=== PATIENT | female | born 1980 | race Caucasian/White ===

== ENCOUNTER 2019-07-31 20:21 | Emergency (ER) | payer BC ==
[2019-07-31] MEDS ORDERED: METHYLPREDNISOLONE SOD SUCC 125MG/2ML VIAL ONE (20:29)
[2019-07-31] MEDS ORDERED: ALBUTEROL INHALER 90MCG/INH IH ONE (20:29)
== END 2019-07-31 21:04 | disposition home or self-care (01) ==
LOC: EDH 20:21
DX: R05 Cough (principal); J45.991 Cough variant asthma; J45.909 Unspecified asthma, uncomplicated; Z90.49 Acquired absence of other specified parts of digestive tract; Z90.710 Acquired absence of both cervix and uterus; Z72.0 Tobacco use; Z88.6 Allergy status to analgesic agent
CPT/HCPCS: 96372; 99284; J2930

== ENCOUNTER 2024-02-27 16:40 | Emergency (ER) | payer BC, OTHER ==
[~2024-02-27] VITALS: Ht 152.4 cm; Wt 59.0 kg
[2024-02-27 17:24] LABS: BASOPHILS # (AUTO) 0.06 K/uL (0.00-0.20); BASOPHILS % (AUTO) 0.6 % (0.0-5.0); EOSINOPHILS # (AUTO) 0.04 K/uL (0.00-0.70); EOSINOPHILS % (AUTO) 0.4 % (0.0-8.0); IMMATURE GRANULOCYTE ABSOLUTE 0.02 K/uL (0-1); LYMPHOCYTES # (AUTO) 2.9 K/uL (1.0-4.8); LYMPHOCYTES % (AUTO) 31.1 % (21.0-51.0); MEAN CORPUSCULAR HEMOGLOBIN 28.8 pg (27.0-33.0); MEAN CORPUSCULAR HGB CONC 34.1 g/dL (32.0-36.0); MEAN CORPUSCULAR VOLUME 84.2 fL (79-99); MONOCYTES # (AUTO) 0.6 K/uL (0.1-1.0); MONOCYTES % (AUTO) 5.9 % (3.0-13.0); NEUTROPHILS # (AUTO) 5.7 K/uL (1.8-7.7); NEUTROPHILS % (AUTO) 61.8 % (40.0-77.0); PLATELET COUNT (AUTO) 198 K/uL (130-400); RED BLOOD CELL COUNT(AUTO) 5.46 MIL/uL (4.00-5.50); RED CELL DISTRIBUTION WIDTH 14.8 % (11.0-15.5); WHITE BLOOD COUNT (AUTO) 9.3 K/uL (4.8-10.8)
[2024-02-27 17:36] LABS: ALBUMIN 4.3 g/dL (3.5-5.0); BILIRUBIN,DIRECT 0.1 mg/dL (0.0-0.3); BILIRUBIN,TOTAL 0.5 mg/dL (0.2-1.0); CREATININE 1.2 mg/dL (0.5-1.0); TOTAL PROTEIN, SERUM 7.7 g/dL (6.0-8.3)
[2024-02-27 17:39] LABS: POTASSIUM 2.9 mmol/L (3.5-5.1)
[2024-02-27] MEDS: 0.9%NACL 1000ML 1,000 ML IV ONE (18:24)
[2024-02-27] MEDS: morPHINE 4 MG SYG IVP ONE (18:25)
[2024-02-27] MEDS: PoTASSium chloRIDE 10MEQ/100ML 100 ML IV ONE (18:26)
[2024-02-27] MEDS: ondanSETRON 4MG INJ IVP ONE (18:26)
[2024-02-27] MEDS ORDERED: PoTASSium chloRIDE 10MEQ/100ML 100 ML IV ONE (18:30)
[2024-02-27] MEDS ORDERED: IOHEXOL-350 75 ML VIAL IV ONE (18:32)
[2024-02-27 20:21] LABS: APPEARANCE,URINE CLEAR (CLEAR); BILIRUBIN,URINE NEGATIVE (NEGATIVE); COLOR,URINE LIGHT-YELLOW (YELLOW); GLUCOSE, URINE (UA) NEGATIVE (NEGATIVE); KETONES,URINE NEGATIVE (NEGATIVE); LEUKOCYTE ESTERASE ,URINE NEGATIVE Leu/uL (NEGATIVE); NITRATE,URINE NEGATIVE (NEGATIVE); OCCULT BLOOD,URINE NEGATIVE (NEGATIVE); PROTEIN,URINE 20 mg/dL (NEGATIVE); UROBILINOGEN,URINE 0.2 mg/dL (0.2-1.0)
[2024-02-27 20:22] LABS: ADD UA MICROSCOPIC YES
[2024-02-27 20:23] LABS: BACTERIA,URINE RARE /HPF (None Seen); RBC,URINE 0-1 /HPF (0-1); SQUAMOUS EPITHELIAL CELL,UR FEW /HPF (0-2); WBC,URINE 0-1 /HPF (0-1)
[2024-02-27 20:35] LABS: AMPHET/METH SCREEN,URINE NEGATIVE (NEGATIVE); BARBITURATE SCREEN, URINE NEGATIVE (NEGATIVE); BENZODIAZEPINES SCREEN,URINE NEGATIVE (NEGATIVE); CANNABINOID SCREEN,URINE POSITIVE (NEGATIVE); COCAINE SCREEN,URINE NEGATIVE (NEGATIVE); OPIATE SCREEN,URINE POSITIVE (NEGATIVE); PHENCYCLIDINE SCREEN,URINE NEGATIVE (NEGATIVE)
[2024-02-27] MEDS ORDERED: ONDA-243 PO (20:56)
[2024-02-27] MEDS: PoTASSium BIcarbonate/CIT AC 25 MEQ TABLET.EFF PO ONE (21:02)
[2024-02-27 22:00] VITALS: BP 136/79; PULSE 88; RESP 16; TEMP 98.2; O2SAT 98
== END 2024-02-27 22:07 | disposition home or self-care (01) ==
LOC: EDH 16:40
DX: K52.9 Noninfective gastroenteritis and colitis, unspecified (principal); F12.10 Cannabis abuse, uncomplicated; E87.6 Hypokalemia; E87.1 Hypo-osmolality and hyponatremia; N17.9 Acute kidney failure, unspecified; E86.0 Dehydration; R74.8 Abnormal levels of other serum enzymes; Z87.11 Personal history of peptic ulcer disease; Z88.2 Allergy status to sulfonamides; Z90.710 Acquired absence of both cervix and uterus
CPT/HCPCS: 99284; 74177; 96365; 96366; 96375; 80076; 83735; 80048; 80305; 84703; 83690; 85025; 36415; 81001; 84132; J7030; J2405; J2270; Q9967; J3480

== ENCOUNTER 2024-03-13 15:08 | Emergency (ER) | payer OTHER ==
[~2024-03-13] VITALS: Ht 152.4 cm; Wt 61.2 kg
[~2024-03-13 15:08] MED LIST: ONDA-243 PO
[2024-03-13 15:16] VITALS: BP 156/93; PULSE 98; RESP 20; TEMP 97.1
--- NOTE | 2024-03-13 15:26 | ERN ---
ED Note History of Present Illness Stated Complaint: MULTIPLE COMPLAINTS Chief Complaint: Multiple Complaints Time Seen by MD: 15:10 Dictation: PATIENT IS A 43-YEAR-OLD FEMALE COMING IN TODAY WITH ACUTE ONSET OF RIGHT UPPER QUADRANT AND EPIGASTRIC PAIN WITH NAUSEA ONSET2 HOURS PRIOR TO ARRIVAL. SHE STATES SHE HAD EATEN WAS TAKEN A BATH WITH THE ONSET OF THE PAIN. NO FEVER NO CHILLS NO CHEST PAIN NO BACK PAIN. SHE STATES SHE WAS SEEN AT [facility] SEVERAL DAYS AGO FOR THE SAME COMPLAINT HAD A COMPLETE WORKUP TO INCLUDE CT SCAN WAS TOLD TO ELECTROLYTE IMBALANCE HOWEVER DID NOT FOLLOW UP WITH A DOCTORS BECAUSE SHE DOES NOT HAVE A PRIMARY CARE DOCTOR. Allergies: Coded Allergies: Sulfa (Sulfonamide Antibiotics) (Unverified Allergy, Unknown, 02/27/24) Home Meds Active Scripts Ondansetron (Ondansetron Odt) 4 Mg Tab.rapdis, 1 TAB PO Q6HPRN PRN for nausea/vo miting for 4 Days, #16 TAB 0 Refills Prov:CYNDI CHOU MD 02/27/24 Past Medical History Past Medical History: Other Additional Past Medical Hx: MS, GASTRIC ULCERS Surgical History: Hysterectomy Surgical History Other: ORAL SX PSYCH History: no pertinent psych hx History: Not Applicable RN Note Reviewed/Agreed w/PFSH: Yes Review of System Dictation CONSTITUTIONAL: NEGATIVE EXCEPT FOR HPI HEAD/FACE: NEGATIVE EXCEPT FOR HPI EENT: NEGATIVE EXCEPT FOR HPI RESPIRATORY: NEGATIVE EXCEPT FOR HPI GASTROINTESTINAL/ABDOMINAL: NEGATIVE EXCEPT FOR HPI RIGHT UPPER QUADRANT EPIGASTRIC PAIN WITH NAUSEA GENITOURINARY: NEGATIVE EXCEPT FOR HPI MUSCULOSKELETAL: NEGATIVE EXCEPT FOR HPI INTEGUMENTARY: NEGATIVE EXCEPT FOR HPI NEUROLOGICAL/PSYCH: NEGATIVE EXCEPT FOR HPI HEMATOLOGIC/LYMPHATIC: NEGATIVE EXCEPT FOR HPI ALL SYSTEMS NEGATIVE, EXCEPT NOTED ABOVE. 13 POINT REVIEW OF SYSTEMS ASSESSED AND ALL NEGATIVE EXCEPT FOR ABOVE. Initial Vital Sign VS Vital Signs Date Time Temp Pulse Resp B/P (MAP) Pulse Ox O2 Delivery O2 Flow Rate FiO2 03/13/24 15:16 97.2 98 20 156/93 99 03/13/24 16:02 Room Air* 0 21 Physical Exam Dictation VITAL SIGNS REVIEWED GENERAL APPEARANCE: ALERT, ORIENTED X 3, MODERATE ACUTE DISTRESS, WELL DEVELOPED, NOURISHED. HEAD AND FACE: NON-TRAUMATIC. EYES: PERRL, PINK CONJUNCTIVAS, EYELID NO TRAUMA, ANTERIOR CHAMBER WITH ARCUS SENILIS. EARS: PINNAS INTACT AND NO SIGNS OF TRAUMA OR ERYTHEMA EAR CANALS CLEAR AND NO DISCHARGE TM NO ERYTHEMA NOSE: NO DISCHARGE, NO BLEEDING. OROPHARYNX: MOUTH NORMAL, TONGUE PINK, PHARYNX CLEAR,NO ERYTHEMA, TONSILS NO EXUDATES, NO ABSCESSES NOTED, MUCOUS MEMBRANE MOIST NECK: SUPPLE, NON-TENDER, NO THYROMEGALY, NO MASSES, NO JVD, NO BRUITS BREAST:DEFERRED CHEST:NO TENDERNESS, NO CREPITUS, NO PARADOXICAL MOVEMENT, NO RETRACTIONS LUNGS:CLEAR, WELL-VENTILATED, SYMMETRIC, NO RALES, NO WHEEZING, NO RHONCHI, NO STRIDOR, GOOD BREATH SOUNDS BILATERALLY HEART: REGULAR RATE, REGULAR RHYTHM, NO MURMUR, NO GALLOPS VASCULAR: NO PERIPHERAL EDEMA, ABDOMEN: SOFT, POSITIVE BOWEL SOUNDS, NONDISTENDED, NO GUARDING, RIGHT UPPER QUADRANT PAIN TENDERNESS, NO REBOUND, NO MASSES NO HEPATOMEGALY, NO SPLENOMEGALY, POSITIVE LOZA'S SIGN, NO HERNIAS. RECTAL: DEFERRED GENITAL: DEFERRED NEUROLOGICAL: NORMAL SPEECH, MOTOR FUNCTION INTACT, SENSORY FUNCTION INTACT MUSCULOSKELETAL: NECK NONTENDER, FULL RANGE OF MOTION, BACK NONTENDER, FULL RANGE OF MOTION, EXTREMITIES: NONTENDER, FULL RANGE OF MOTION SKIN: COLOR PINK, DRY, NO TURGOR, NO RASH, NO LACERATIONS, NO ABRASIONS, NO CONTUSIONS. LYMPHATIC: DEFERRED Results (Laboratory/Radiology) Laboratory/Radiology Laboratory Tests Test 03/13/24 15:45 White Blood Count 6.7 K/uL (4.8-10.8) Red Blood Count 5.31 MIL/uL (4.00-5.50) Hemoglobin 15.3 g/dL (12.0-16.0) Hematocrit 45.9 % (36-48) Mean Corpuscular Volume 86.4 fL (79-99) Mean Corpuscular Hemoglobin 28.8 pg (27.0-33.0) Mean Corpuscular Hemoglobin Concent 33.3 g/dL (32.0-36.0) Red Cell Distribution Width 14.9 % (11.0-15.5) Platelet Count 214 K/uL (130-400) Mean Platelet Volume 9.5 fL (7.5-10.5) Immature Granulocyte % (Auto) 0.3 % (0-1) Neutrophils (%) (Auto) 57.0 % (40.0-77.0) Lymphocytes (%) (Auto) 35.4 % (21.0-51.0) Monocytes (%) (Auto) 4.8 % (3.0-13.0) Eosinophils (%) (Auto) 1.8 % (0.0-8.0) Basophils (%) (Auto) 0.7 % (0.0-5.0) Neutrophils # (Auto) 3.8 K/uL (1.8-7.7) Lymphocytes # (Auto) 2.4 K/uL (1.0-4.8) Monocytes # (Auto) 0.3 K/uL (0.1-1.0) Eosinophils # (Auto) 0.12 K/uL (0.00-0.70) Basophils # (Auto) 0.05 K/uL (0.00-0.20) Absolute Immature Granulocyte (auto 0.02 K/uL (0-1) Nucleated Red Blood Cells 0.0 % (0.0-0.19) Sodium Level 140 mmol/L (136-145) Potassium Level 3.5 mmol/L (3.5-5.1) Chloride Level 101 mmol/L (101-111) Carbon Dioxide Level 30 mmol/L (21-32) Blood Urea Nitrogen 7 mg/dL (7-18) Creatinine 1.1 mg/dL (0.5-1.0) H Glomerular Filtration Rate Calc 64 mL/min (>90) Random Glucose 129 mg/dL (70-105) H Total Calcium 9.5 mg/dL (8.5-10.1) Lipase 36 U/L (16-77) 16 15, ULTRASOUND WAS NOT PERFORMED BECAUSE 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 PATIENT WAS BROUGHT BACK TO THE EMERGENCY ROOM CURRENTLY SITTING IN THE WAITING ROOM IN NO ACUTE DISTRESS IN HIS TEXTING. SHE WILL BE DISCHARGED HOME TO FOLLOW UP WITH AN POWER SCREWDRIVER OPERATOR DOCTOR IN THE NEXT 1-2 DAYS. AND WE WILL PROVIDE BENTYL FOR PAIN. Labs Reviewed?: Yes ED Course ED Course Orders Procedure Category Date Status Time Cbc With Differential LAB 03/13/24 Complete 15:18 Urinalysis Profile LAB 03/13/24 Logged 15:18 0.9%Nacl 1000ml (Ns PHA 03/13/24 Complete 1000ml) 15:30 Ketorolac PHA 03/13/24 Complete Tromethamine 30mg/Ml 15:30 Ondansetron 4mg Inj PHA 03/13/24 Complete (Zofran 4mg Inj) 15:30 Famotidine 20mg Vial PHA 03/13/24 Complete (Pepcid 20mg Vial) 15:30 Lipase LAB 03/13/24 Complete 15:18 Basic Metabolic Panel LAB 03/13/24 Complete 15:18 Us Abdominal Ruq\Ltd US 03/13/24 Taken 15:18 Current Medications Medications (Trade) Dose Ordered Sig/Adyin Route PRN Reason Start Time Stop Time Status Last Admin Dose Admin Famotidine (Pepcid 20mg Vial) 20 mg ONCE ONCE IV 03/13/24 15:30 03/13/24 15:31 DC Ketorolac Tromethamine (toRADol) 30 mg ONCE ONCE IVP 03/13/24 15:30 03/13/24 15:31 DC Ondansetron HCl (zoFRAN 4MG INJ) 4 mg ONCE ONCE IVP 03/13/24 15:30 03/13/24 15:31 DC Sodium Chloride 1,000 ml @ 0 mls/hr ONCE ONCE IV 03/13/24 15:30 03/13/24 15:31 DC Vital Signs Date Time Temp Pulse Resp B/P (MAP) Pulse Ox O2 Delivery O2 Flow Rate FiO2 03/13/24 16:02 97.2 98 20 156/93 99 Room Air* 0 21 03/13/24 15:16 97.2 98 20 156/93 99 Medical Decision Making MDM MDM: DIFFERENTIAL DIAGNOSIS: CHOLEDOCHOLITHIASIS/CHOLELITHIASIS/BILIARY COLIC/ELECTROLYTE IMBALANCE/DEHYDRATION RATIONALE: TESTS CONSIDERED AND ORDERED SECONDARY TO SHARED DECISION MAKING INCLUDE: LABS/ULTRASOUND, NOT PERFORMED PREVIOUS OUTSIDE RECORDS REVIEWED: OLD ER VISITS. REVIEWED RISK OF COMPLICATION AND/OR MORBIDITY OR MORTALITY OF PATIENT MANAGEMENT: NONE MEDICATIONS-PER MEDICATION RECONCILIATION SEE NURSE'S NOTES NEED FOR HOSPITALIZATION: PATIENT DOES NOT MEET CRITERIA FOR HOSPITALIZATION. DISCHARGED HOME NEED FOR EMERGENCY MAJOR/MINOR SURGERY: NO THERE ARE NO SOCIAL CONCERNS WITH THIS PATIENT. PRESCRIPTION DRUG MANAGEMENT [place], NAME OF PUBLIC ADDRESS SYSTEMS MECHANIC PRESCRIPTIONS WILL INCLUDE SYMPTOMATIC CARE PATIENT'S PRIOR EXTERNAL MEDICAL RECORDS FROM OTHER ER VISITS WERE REVIEWED BY ME INDICATED. PRIOR TESTING AND RESULTS FROM PREVIOUS VISITS WERE REVIEWED. PRIOR TESTS WERE TAKEN INTO ACCOUNT WITH MEDICAL DECISION MAKING AND RESOURCE UTILIZATION, INDEPENDENT HISTORIAN/HISTORIANS WERE USED TO OBTAIN COMPLETE MEDICAL HISTORY. I INDEPENDENTLY INTERPRETED THE TEST THAT WERE PERFORMED, RESULTS WERE REVIEWED BY ME AND CONSIDERED FINDINGS ON RADIOLOGY IF ORDERED. MEDICAL MANAGEMENT AND EXAMINATION INTERPRETATION DISCUSSIONS WERE HAD BY ME WITH OTHER QUALIFIED HEALTHCARE PROFESSIONALS INDICATED FOR THE PATIENT'S CARE. DX & DISP Disposition: Discharge Departure Impression: Primary Impression: Anxiety Additional Impressions: Agitation, Acute gastritis Condition: Stable Scripts Ondansetron (Ondansetron Odt) 4 Mg Tab.rapdis 4 MG PO Q6HPRN PRN for nausea, #16 TAB 0 Refills Prov: BHASKAR JALLOH NP 03/13/24 Dicyclomine HCl (Bentyl) 20 Mg Tab 20 MG PO Q6HPRN for ABDOMINAL PAIN/CRAMPING, #30 TAB Prov: BHASKAR JALLOH NP 03/13/24 Referrals: SELF,REFERRAL (PCP) KARINE HEATON MD Time of Disposition: 16:19 I have reviewed the case, and I agree with, Diagnosis and Plan BHASKAR JALLOH NP Mar 13, 2024 15:26
[2024-03-13] MEDS ORDERED: FAMOTIDINE 20MG VIAL IV ONE (15:30)
[2024-03-13] MEDS ORDERED: ketOROlac 30MG VIAL (30MG/ML) IVP ONE (15:30)
[2024-03-13] MEDS ORDERED: ondanSETRON 4MG INJ IVP ONE (15:30)
[2024-03-13] MEDS ORDERED: 0.9%NACL 1000ML 1,000 ML IV ONE (15:30)
[2024-03-13 15:56] LABS: BASOPHILS # (AUTO) 0.05 K/uL (0.00-0.20); BASOPHILS % (AUTO) 0.7 % (0.0-5.0); EOSINOPHILS # (AUTO) 0.12 K/uL (0.00-0.70); EOSINOPHILS % (AUTO) 1.8 % (0.0-8.0); HEMATOCRIT 45.9 % (36-48); IMMATURE GRANULOCYTE ABSOLUTE 0.02 K/uL (0-1); LYMPHOCYTES # (AUTO) 2.4 K/uL (1.0-4.8); LYMPHOCYTES % (AUTO) 35.4 % (21.0-51.0); MEAN CORPUSCULAR HEMOGLOBIN 28.8 pg (27.0-33.0); MEAN CORPUSCULAR HGB CONC 33.3 g/dL (32.0-36.0); MEAN CORPUSCULAR VOLUME 86.4 fL (79-99); MONOCYTES # (AUTO) 0.3 K/uL (0.1-1.0); MONOCYTES % (AUTO) 4.8 % (3.0-13.0); NEUTROPHILS # (AUTO) 3.8 K/uL (1.8-7.7); PLATELET COUNT (AUTO) 214 K/uL (130-400); RED BLOOD CELL COUNT(AUTO) 5.31 MIL/uL (4.00-5.50); RED CELL DISTRIBUTION WIDTH 14.9 % (11.0-15.5); WHITE BLOOD COUNT (AUTO) 6.7 K/uL (4.8-10.8)
[2024-03-13 16:02] VITALS: O2SAT 99
[2024-03-13 16:02] LABS: CREATININE 1.1 mg/dL (0.5-1.0); POTASSIUM 3.5 mmol/L (3.5-5.1)
[2024-03-13] MEDS ORDERED: DICY20TA2 PO (16:20)
[2024-03-13] MEDS ORDERED: ONDA-243 PO (16:22)
[2024-03-13] MEDS: DICYCLOMINE HCL 20 MG TAB PO ONE (17:02)
== END 2024-03-13 17:04 | disposition home or self-care (01) ==
LOC: EDH 15:08
DX: K29.00 Acute gastritis without bleeding (principal); F41.9 Anxiety disorder, unspecified; Z90.710 Acquired absence of both cervix and uterus; Z79.899 Other long term (current) drug therapy; Z88.2 Allergy status to sulfonamides; R45.1 Restlessness and agitation
CPT/HCPCS: 36415; 76705; 80048; 83690; 85025; 99284